=== PATIENT | male | born 1955 | race Caucasian/White ===

== ENCOUNTER 2017-06-14 16:46 | Emergency (ER) | payer SELFPAY ==
--- NOTE | 2017-06-14 17:26 | EDPHY ---
H & P Time Seen by Provider: 06/14/17 17:09 HPI/ROS: HPI Urinary complaints. 72-year-old male, visiting his son from [place], with his . He reports acute onset increased frequency with urination, small volume urination and suprapubic/bladder discomfort since last Monday. He reports that he and his not seen each other in about a month. He had sexual intercourse with his on . He denies any pain or other complaints from this event. There is no history of trauma. No new medications. He reports on Monday he suddenly had discomfort with urinating and was unable to urinate in full amounts. He describes this discomfort as a burning when he tries to urinate. He also describes having a sensation to void frequently. ROS: Constitutional: No fever, no chills. No weakness. Respiratory: No cough. No shortness of breath. Cardiac: No chest pain, no palpitations. Gastrointestinal: No abdominal pain, no vomiting, no diarrhea. Genitourinary: No hematuria. As above. Musculoskeletal: No back pain. No neck pain. No myalgias or arthralgias. Skin: No rashes. Neurological: No headache. No focal weakness or altered sensation. Past medical history: He takes Flomax for prostatic hypertrophy. Does have some chronic what he describes as calcifications in his posterior right testicle. He reports that these have been investigated. No history of testicular malignancy. Social history: Nonsmoker. Visiting his son. They are due to return to [place] on June 27. He is with his whom he has been to for 44 years. Physical Exam: General Appearance: Alert, no distress. This patient is responding to questions appropriately and in full sentences. This patient appears well- hydrated and well-nourished. Eyes: Pupils equal and round no pallor or injection. No lid edema, erythema or injection. Respiratory: There are no retractions, lungs are clear to auscultation with good air movement bilaterally. Cardiovascular: Regular rate and rhythm. No murmur. Gastrointestinal: Abdomen is soft, distended bladder with vague tenderness on palpation, otherwise no masses, bowel sounds normal. No focal tenderness at McBurney's point. No Mcgowan sign. : No clinical evidence of torsion on examination of his testicles. He does have some solid nodular like masses posterior scrotum. These are chronic. Penis small amount of clear urine dribbling from the meatus. No discharge. No lesions. Neurological: Motor sensory function is grossly intact. Cranial nerves are normal. Gait is normal. Skin: Warm and dry, no rashes. Musculoskeletal: Neck is supple and nontender. Extremities are symmetrical. All joints range without pain or impingement. Psychiatric: No agitation. No depression. Database: EKG: Imaging: Procedures: Emergency department course: Vital signs reviewed. He is mildly tachycardic. Afebrile. Vital signs otherwise unremarkable. Postvoid residual urine was over 1000 cc. A Bell catheter will be placed. We will evaluate his renal function and send urine for urinalysis. 18 Irish coude tip catheter placed. 2000 cc of urine output. Tachycardia resolved. 6:30 p.m., patient re-evaluated. Resting comfortably at this time. He states that he feels much better and completely relieved. 6:35 p.m., discussed case with on-call urologist, Dr. López Watson. He will see this patient in his office tomorrow for further evaluation and management. This plan was discussed with the patient, his and son. He was provided with a leg bag and instructions on Bell catheter maintenance. They will follow up with Dr. hammond tomorrow. Return to emergency department precautions were reviewed with them. All of their questions were answered. The patient was discharged home in good condition. Differential Diagnosis: The differential diagnosis on this patient includes but is not limited to prostatic hypertrophy with acute urinary retention. Anticholinergic/medication reaction unlikely. Infection unlikely. This represents a partial list of diagnoses considered. These considerations are based on history, physical exam , past history, reassessment and diagnostic testing. Smoking Status: Never smoked Constitutional: Initial Vital Signs Temperature (C) 36.9 C 06/14/17 16:59 Heart Rate 103 H 06/14/17 16:59 Respiratory Rate 20 06/14/17 16:59 Blood Pressure 142/97 H 06/14/17 16:59 O2 Sat (%) 96 06/14/17 16:59 O2 Delivery Mode Room Air Allergies/Adverse Reactions: No Known Allergies Allergy (Unverified 06/14/17 17:03) Medical Decision Making - Data Points Laboratory Results: Laboratory Results 06/14/17 17:25 06/14/17 17:25 Departure - Departure Disposition: Home, Routine, Self-Care Clinical Impression: Acute urinary retention, Bell catheter in place Condition: Good Instructions: Urinary Retention in Men (ED), Bell Catheter Placement and Care (ED) Additional Instructions: Read and follow provided instructions. Follow-up with Dr. López Watson, urologist, as discussed. Call his office 1st thing in the morning for appointment time. I spoke with him tonight and he is aware of your emergency department visit and care. The Bell catheter stay in place until you are seen by Dr. Watson. Continue your medication as prescribed. Continue your Flomax as prescribed. Return to the emergency department for fever, worsening pain, blood in your urine or other serious concerns. Referrals: López Watson MD [Medical Doctor] - As per Instructions
[2017-06-14 17:34] LABS: % IMMATURE GRANULYOCYTES 0.2 % (0.0-1.1); ABSOLUTE IMMATURE GRANULOCYTES 0.02 10^3/uL (0.00-0.10); ADD DIFF? NO; ADD MORPH? NO; ADD SCAN? NO; ATYPICAL LYMPHOCYTE FLAG 20 (0-99); FRAGMENT RBC FLAG 0 (0-99); HEMATOCRIT 42.7 % (40.0-51.0); HEMOGLOBIN 14.3 g/dL (13.7-17.5); LEFT SHIFT FLG 0 (0-99); LIPEMIA HEMOLYSIS FLAG 80 (0-99); MEAN CELL HEMOGLOBIN 29.5 pg (27.9-34.1); MEAN CELL HEMOGLOBIN CONCENTR. 33.5 g/dL (32.4-36.7); PLATELET CLUMPS FLAG 0 (0-99); PLATELET COUNT 233 10^3/uL (150-400); RED BLOOD CELL COUNT 4.85 10^6/uL (4.40-6.38); RED CELL DISTRIBUTION WIDTH 14.2 % (11.5-15.2)
[2017-06-14 17:34] LABS: COLOR PALE YELLOW; LEUKOCYTE ESTERASE,URINE NEGATIVE (NEGATIVE); NITRITE,URINE NEGATIVE (NEGATIVE)
[2017-06-14 17:40] LABS: RBC,URINE NONE SEEN /hpf (0-3)
[2017-06-14 17:47] LABS: ANION GAP 20 mEq/L (8-16); CALCIUM 10.1 mg/dL (8.5-10.4); CARBON DIOXIDE 18 mEq/l (22-31); CHLORIDE 106 mEq/L (97-110); CREATININE 1.2 mg/dL (0.7-1.3); GLOMERULAR FILTRATION RATE > 60; GLUCOSE 107 mg/dL (70-100); POTASSIUM 4.6 mEq/L (3.5-5.2); SODIUM 144 mEq/L (134-144)
[2017-06-14 18:59] VITALS: BP 146/75; PULSE 88; RESP 16; TEMP 98.2; O2SAT 95
== END 2017-06-14 18:58 | disposition home or self-care (01) ==
PROC: 0T9B70Z Drainage of Bladder with Drainage Device, Via Natural or Artificial Opening (ICD-10-PCS; principal; 2017-06-14)
DX: R33.9 Retention of urine, unspecified (principal); Z46.6 Encounter for fitting and adjustment of urinary device